=== PATIENT | male | born 2000 | race Caucasian/White ===

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

== ENCOUNTER → 2022-08-09 | Outpatient (CLI) | payer MEDICAID, SELFPAY ==
--- NOTE | 2022-08-10 08:22 | SPIR ---
Spirometry PFT Testing Spirometry PFT Testing: INTRODUCTION: The patient is a 21-year-old male that presents for spirometry testing secondary to a diagnosis of chronic cough. Respiratory therapy reported good patient effort. Bronchodilators were used during testing. INTERPRETATION: Forced expiration spirometry demonstrates no evidence of a large airways obstructive ventilatory defect. There was no significant response to aerosolized bronchodilators. Spirograms are of good quality and plateau normally. The respiratory flow-volume loop is normal. IMPRESSION: Normal spirometry without significant bronchodilator response.
== END | disposition home or self-care (01) ==
LOC: PSN 08:23
PROVIDERS: Referring Provider Nurse Practitioner Family; Visit Provider Nurse Practitioner Family
DX: R05.3 Chronic cough (principal)
CPT/HCPCS: 94060

== ENCOUNTER 2023-10-21 23:03 | Emergency (ER) | payer SELFPAY ==
[2023-10-21 23:04] VITALS: BP 154/113; PULSE 112; RESP 18; TEMP 36.6; O2SAT 97; BMI 39.1
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
[2023-10-21] MEDS: Naproxen 500 MG Tablet PO (23:17)
== END 2023-10-21 23:28 | disposition home or self-care (01) ==
LOC: ED 23:24
PROVIDERS: Emergency Provider Emergency Medicine; Visit Provider Emergency Medicine
DX: S20.20XA Contusion of thorax, unspecified, initial encounter (principal); R03.0 Elevated blood-pressure reading, without diagnosis of hypertension; W50.0XXA Accidental hit or strike by another person, initial encounter
CPT/HCPCS: 99282